=== PATIENT | male | born 1990 | race Two or more races ===

== ENCOUNTER 2024-12-08 21:44 | Emergency (ER) | payer OTHER, SELFPAY ==
[2024-12-08 21:46] VITALS: BMI 27.9
[2024-12-08 22:19] VITALS: BP 125/82; PULSE 84; RESP 16; TEMP 37.2; O2SAT 97
--- NOTE | 2024-12-08 22:36 | XR_ITS ---
Examination: Ribs, right, with PA chest, 5 views Technique: Chest PA, RIBS AP, RPO, LPO, AP coned lower ribs 5 views Exam date and time: December 08, 2024 1040 hrs. Indications: Soccer injury one week ago to the right chest right rib pain Findings: Normal heart size No pneumothorax No hemothorax Suspicious for nondisplaced fracture left fifth rib anteriorly Impression: Suspicious for nondisplaced fracture left fifth rib anteriorly
--- NOTE | 2024-12-08 22:51 | PD.EDCHEST ---
ED Chest Pain RME/HPI General Chief Complaint: Shortness of Breath/Dyspnea Stated Complaint: RT RIB PAIN X 1 WEEK Time Seen by Provider: 12/08/24 22:35 Arrival date/time: 12/08/24 21:44 34M with no significant PMH presents to ED with 1 week of R rib pain after soccer injury. Limitations: no limitations Related Data Previous Rx's ?Medication ?Instructions ?Recorded Hydrocodone/Acetaminophen * (NORCO 2 tab PO Q4H PRN PAIN #28 tabs 04/07/16 5/325 *) ibuprofen 600 mg tablet 600 mg PO Q8HR PRN PAIN #30 tabs 04/07/16 Allergies Allergy/AdvReac Type Severity Reaction Status Date / Time No Known Allergies Allergy Unknown NONE Verified 12/08/24 21:45 Review of Systems Review of Systems Systems Reviewed: All systems reviewed, normal except as documented Constitutional Constitutional: Reports system reviewed and no additional complaints, except as documented, Denies fever(s) and Denies headache(s) ENT Ears, Nose, Mouth, and Throat: Denies disequilibrium and Denies headache(s) Cardiovascular Cardiovascular: Reports system reviewed and no additional complaints, except as documented, Reports as per HPI, Reports chest pain (R rib) and Denies dyspnea Respiratory Respiratory: Reports system reviewed and no additional complaints, except as documented, Denies cough and Denies dyspnea Gastrointestinal Gastrointestinal: Reports system reviewed and no additional complaints, except as documented, Denies abdominal pain, Denies nausea and Denies vomiting Neurologic Neurologic: Reports system reviewed and no additional complaints, except as documented, Denies confusion, Denies disequilibrium and Denies headache(s) Psychiatric Psychiatric: Denies confusion Past Medical History Social History SMOKING STATUS: Never smoker ED Exam General Limitations: Present no limitations General appearance: Present alert and in no apparent distress Head Head exam: Present atraumatic Eye Eye exam: Present normal appearance, PERRL and EOMI ENT ENT exam: Present normal exam, normal oropharynx and mucous membranes moist Neck Neck exam: Present normal inspection, full ROM and trachea midline Chest Chest inspection: Present symmetric chest wall rise and tenderness (R rib) Respiratory Respiratory exam: Present normal lung sounds bilaterally Cardiovascular Cardiovascular exam: Present regular rate, normal rhythm and normal heart sounds Abdominal Exam Abdominal exam: Present soft and normal bowel sounds Extremities Exam Extremities exam: Present normal inspection and full ROM Back Exam Back exam: Present normal inspection and full ROM Neurological Exam Neurological exam: Present alert, oriented X3 and CN II-XII intact Psychiatric Psychiatric exam: Present normal affect and normal mood Skin Skin exam: Present warm, dry, intact and normal color Course Quality Measures none Orders Category Date Time Status XR ribs RT min 3V w CXR1V Stat Exams 12/08/24 22:36 Completed Vital Signs Vital signs: Vital Signs Temperature 98.9 F 12/08/24 22:19 Pulse Rate 84 12/08/24 22:19 Respiratory Rate 16 12/08/24 22:19 Blood Pressure 125/82 12/08/24 22:19 Pulse Oximetry (%) 97 12/08/24 22:19 Oxygen Delivery Method Room Air 12/08/24 22:19 O2 at 97% on RA and WNLs Chest Pain MDM Narrative MDM Narrative:: 34M with no significant PMH presents to ED with 1 week of R rib pain after soccer injury. Physical exam reveals R rib tenderness, but clear lungs. Patient is afebrile, calm, and alert. XR shows old L rib fx, but no new fx. Patient data External records reviewed:: [facility] previous records Clinical information provided by:: patient Social determinants that could affect healthcare access:: none Patient has the following chronic illnesses:: none How is presenting disease/condition affected by chronic disease/condition?: no chronic disease Evaluation data The following diagnostics were reviewed and interpreted by me:: radiology exam(s) Lab and/or radiology exams considered but not ordered:: ordered Interpretation Summary: above Medications / Prescriptions Medications or Prescriptions considered but not ordered:: not ordered Medication administrations:: n/a Consultations Consultation(s) initiated? (list below): No Diagnosis Chest Pain Differential Diagnosis: fracture of rib, pneumothorax, stable angina, unstable angina pectoris, atypical chest pain, st elevation myocardial infarction, costochondritis, chest pain, biliary colic and other (rib contusion) Most likely diagnosis given after review of the tests above:: rib contusion Admission Indicated Admission indicated?: not indicated Admission Request Was there a request for admission?: No Disposition Plan Disposition Plan: Discharge Discharge Attestation Discharge Attestation: The patient and all family members were given an opportunity to ask questions and understood the discharge instructions. Discharge instructions specifically effects, indications for sooner follow up or return to the emergency department, and the expected course of current diagnosis. Patient condition: Stable Discharge Plan Plan Patient Disposition: HOME (Self Care) Disposition Comment: Stable Prescriptions/Referrals Prescriptions/Med Rec: No Action ibuprofen 600 MG tablet 600 mg PO Q8HR PRN (Reason: PAIN) Qty: 30 0RF Hydrocodone/Acetaminophen * (NORCO 5/325 *) 1 TAB tablet 2 tab PO Q4H PRN (Reason: PAIN) Qty: 28 0RF Problem List Clinical Impression: Contusion of rib Patient/Caregiver Discharge Instructions Education Materials: ED Contusion, Rib Additional Instructions: Please follow-up with PCP within 24-48 hours and return immediately if symptoms worsen. Print Language: Zimbabwean Stand Alone Forms: Patient Portal Info Letter PA/CARPET INSTALLER Supervising Physician PA/CARPET INSTALLER Supervising Physician: Dr. Fernando
== END 2024-12-08 23:33 | disposition home or self-care (01) ==
LOC: SERX 23:24
PROVIDERS: Emergency Provider Emergency Medicine
DX: S20.219A Contusion of unspecified front wall of thorax, initial encounter (principal); X58.XXXA Exposure to other specified factors, initial encounter
CPT/HCPCS: 71101; 99283

== ENCOUNTER 2025-03-29 20:40 | Emergency (ER) | payer OTHER, SELFPAY ==
[2025-03-29 20:41] VITALS: BMI 27.3
[2025-03-29 20:54] VITALS: BP 124/80; PULSE 63; RESP 18; TEMP 37.1; O2SAT 97
--- NOTE | 2025-03-29 21:21 | EDNOTE_ITS ---
<Statement entered by Melody Mcfarlane MD - 03/30/25 21:03> As co-signing physician, I was present and available for consult prn. I concur with the plan and care as documented by the midlevel provider. Nausea/Vomit./Diarrhea-RME/HPI General Chief complaint: Nausea/Vomiting/Diarrhea Stated complaint: DIARRHEA X 3 WEEKS Time Seen by Provider: 03/29/25 21:03 Arrival date/time: 03/29/25 20:40 34M with history of psych presents to ED with 3 weeks of non-bloody diarrhea. Symptoms started after patient took some unknown ABX for strep throat. Patient had stool testing done last week but doesn't know results. Patient has colonoscopy in 2 weeks. Limitations: no limitations Related Data Previous Rx's ?Medication ?Instructions ?Recorded Hydrocodone/Acetaminophen * (NORCO 2 tab PO Q4H PRN PA IN #28 tabs 04/07/16 5/325 *) ibuprofen 600 mg tablet 600 mg PO Q8HR PRN PAIN #30 tabs 04/07/16 Allergies Allergy/AdvReac Type Severity Reaction Status Date / Time No Known Allergies Allergy Unknown NONE Verified 12/08/24 21:45 Review of Systems Review of Systems Systems Reviewed: All systems reviewed, normal except as documented Constitutional Constitutional: Reports system reviewed and no additional complaints, except as documented, Denies fever(s) and Denies headache(s) ENT Ears, Nose, Mouth, and Throat: Denies disequilibrium and Denies headache(s) Cardiovascular Cardiovascular: Reports system reviewed and no additional complaints, except as documented, Denies chest pain and Denies dyspnea Respiratory Respiratory: Reports system reviewed and no additional complaints, except as documented, Denies cough and Denies dyspnea Gastrointestinal Gastrointestinal: Reports system reviewed and no additional complaints, except as documented, Reports as per HPI, Denies abdominal pain, Reports diarrhea, Denies nausea and Denies vomiting Neurologic Neurologic: Reports system reviewed and no additional complaints, except as documented, Denies confusion, Denies disequilibrium and Denies headache(s) Psychiatric Psychiatric: Denies confusion Past Medical History Past Medical History CARDIAC: Negative Congestive Heart Failure RESPIRATORY: Negative Chronic Obstructive Pulmonary Disease (COPD) GENITOURINARY: Negative Renal Disease ENDOCRINE: Negative Diabetes Mellitus Type 1 or Diabetes Mellitus Type 2 Social History SMOKING STATUS: Never smoker ED Exam General Limitations: Present no limitations General appearance: Present alert and in no apparent distress Head Head exam: Present atraumatic Eye Eye exam: Present normal appearance, PERRL and EOMI ENT ENT exam: Present normal exam, normal oropharynx and mucous membranes moist Neck Neck exam: Present normal inspection, full ROM and trachea midline Chest Chest inspection: Present normal inspection and symmetric chest wall rise Respiratory Respiratory exam: Present normal lung sounds bilaterally Cardiovascular Cardiovascular exam: Present regular rate, normal rhythm and normal heart sounds Abdominal Exam Abdominal exam: Present soft and normal bowel sounds Extremities Exam Extremities exam: Present normal inspection and full ROM Back Exam Back exam: Present normal inspection and full ROM Neurological Exam Neurological exam: Present alert, oriented X3 and CN II-XII intact Psychiatric Psychiatric exam: Present normal affect and normal mood Skin Skin exam: Present warm, dry, intact and normal color Course Quality Measures none Vital Signs Vital signs: Vital Signs Temperature 98.7 F 03/29/25 20:54 Pulse Rate 63 03/29/25 20:54 Respiratory Rate 18 03/29/25 20:54 Blood Pressure 124/80 03/29/25 20:54 Pulse Oximetry (%) 97 03/29/25 20:54 Oxygen Delivery Method Room Air 03/29/25 20:54 O2 at 97% on RA and WNLs Nausea/Vomiting/Diarrhea MDM Narrative MDM Narrative:: 34M with history of psych presents to ED with 3 weeks of non-bloody diarrhea. Symptoms started after patient took some unknown ABX for strep throat. Patient had stool testing done last week but doesn't know results. Patient has colonoscopy in 2 weeks. Physical exam reveals male in no acute distress. Patient is afebrile, calm, and alert. Help Desk Consultant given. Patient data External records reviewed:: [facility] previous records Clinical information provided by:: patient Social determinants that could affect healthcare access:: mental health Patient has the following chronic illnesses:: psych How is presenting disease/condition affected by chronic disease/condition?: exacerbated by Evaluation data The following diagnostics were reviewed and interpreted by me:: other (specify) (none) Lab and/or radiology exams considered but not ordered:: not ordered Interpretation Summary: n/a Medications / Prescriptions Medications / Prescriptions considered but not ordered:: not ordered Medication administrations:: n/a Consultations Consultation(s) initiated? (list below): No Diagnosis Nausea Differential Diagnosis: traveler's diarrhea, food poisoning, gastroenteritis, clostridium difficile infection, drug-induced nausea and vomiting, dehydration and other (diarrhea) Most likely diagnosis given after review of the tests above:: diarrhea Admission Indicated Admission indicated?: not indicated Admission Request Was there a request for admission?: No Disposition Plan Disposition Plan: Discharge Discharge Attestation Discharge Attestation: The patient and all family members were given an opportunity to ask questions and understood the discharge instructions. Discharge instructions specifically effects, indications for sooner follow up or return to the emergency department, and the expected course of current diagnosis. Patient condition: Stable Discharge Plan Plan Patient Disposition: HOME (Self Care) Discharge Disposition comment: Stable Prescriptions/Referrals Prescriptions/Med Rec: No Action ibuprofen 600 MG tablet 600 mg PO Q8HR PRN (Reason: PAIN) Qty: 30 0RF Hydrocodone/Acetaminophen * (NORCO 5/325 *) 1 TAB tablet 2 tab PO Q4H PRN (Reason: PAIN) Qty: 28 0RF Referrals: No Primary/Family,Physician [Primary Care Provider] - In 1 week Problem List Clinical Impression: Diarrhea Patient/Caregiver Discharge Instructions Education Materials: ED Diarrhea, Unknown Cause Additional Instructions: Please follow-up with PCP within 24-48 hours and return immediately if symptoms worsen. Print Language: Danish Stand Alone Forms: Patient Portal Info Letter KEVIN/BORIS Supervising Physician KEVIN/BORIS Supervising Physician: Dr. Mcfarlane
== END 2025-03-29 21:29 | disposition home or self-care (01) ==
PROVIDERS: Emergency Provider Emergency Medicine
DX: R19.7 Diarrhea, unspecified (principal)
CPT/HCPCS: 99281

== ENCOUNTER 2025-04-11 09:40 | Day surgery (SDC) | payer OTHER, SELFPAY ==
[2025-04-11] VITALS (13 sets, daily range): BP systolic 115–149; BP diastolic 76–109; PULSE 72–101; RESP 12–19; TEMP 36.8–37.2; O2SAT 94–98; BMI 27.8
[2025-04-11] MEDS: SODIUM CHLORIDE 0.9% 500 ML 500 ML 20 ML IV (11:23)
[2025-04-11] MEDS: BENZOCAINE 20% (Hurricaine) SPRAY 1 DOSE TOP (11:23)
[2025-04-11] MEDS: fentaNYL CIT INJ 50 mCg/ML AMP 2ML (ASD USE ONLY) IVP (11:42)
[2025-04-11] MEDS: MIDAZOLAM INJ 1 MG/ML VIAL 2 ML (ASD USE ONLY) 2 MG IVP (11:42)
--- NOTE | 2025-04-11 12:13 | SUR.PHASEII ---
1156 patient is sleepy and arousable, breathing unlabored, s/p EGD and colonoscopy under IV sedation, report received from Tesha GEORGES.
--- NOTE | 2025-04-11 13:21 | SUR.PHASEII ---
1245 patient is awake, alert, breathing unlabored, able to tolerate water and 7up with no nausea or vomiting, meets discharge criteria, discharge instructions given to patient and father Good, patient discharged home in wheelchair with all belongings.
== END 2025-04-11 12:45 | disposition home or self-care (01) ==
PROVIDERS: PCP Family Medicine; Referring Provider Specialist; Visit Provider Specialist
PROC: 0DBE8ZX Excision of Large Intestine, Via Natural or Artificial Opening Endoscopic, Diagnostic (ICD-10-PCS; CPT 45380; principal; 2025-04-11 12:45)
PROC: (CPT 43239; 2025-04-11 12:45)
DX: K52.9 Noninfective gastroenteritis and colitis, unspecified (principal); K63.89 Other specified diseases of intestine; K62.89 Other specified diseases of anus and rectum; K64.9 Unspecified hemorrhoids
CPT/HCPCS: 45380; J1200; J2250; J3010; J7999; A9270

== ENCOUNTER → 2025-05-02 | Outpatient (CLI) | payer OTHER, SELFPAY ==
--- NOTE | 2025-05-02 07:15 | XR_ITS ---
Examination: Abdomen sonogram, complete Date and time of exam: May 02, 2025, 0713 hours INDICATIONS: Abdominal pain and diarrhea beginning 2 years ago. Technique: Multiple real-time grayscale transabdominal sonographic images of the abdomen have been obtained. Findings: Normal gallbladder. Normal common bile duct 0.2 cm Pancreatic head 2.5 cm. Liver is not enlarged, fatty infiltration Aorta normal size. Normal hepatopedal portal venous flow Patent IVC Right kidney 11.4 cm renal cortex 1.4 cm Left kidney 12.7 cm renal cortex 1.4 cm Mild renal parenchymal scar formation. Spleen 11.0 cm IMPRESSION: Fatty infiltration throughout the liver Mild renal parenchymal scar formation
== END | disposition home or self-care (01) ==
LOC: CDIM 07:00
PROVIDERS: PCP Family Medicine; Referring Provider Nurse Practitioner; Visit Provider Nurse Practitioner
DX: K76.0 Fatty (change of) liver, not elsewhere classified (principal)
CPT/HCPCS: 76700